=== PATIENT | female | born 1975 | race Caucasian/White ===

== ENCOUNTER 2020-06-30 10:13 | Emergency (ER) | payer OTHER, SELFPAY ==
[~2020-06-30] VITALS: Ht 162.6 cm; Wt 66.2 kg
[2020-06-30 10:22] VITALS: BP 151/96; Ht 162.6 cm; Wt 66.2 kg
== END 2020-06-30 11:14 | disposition home or self-care (01) ==
LOC: ED 10:13
DX: R19.7 Diarrhea, unspecified (principal); R51.9 Headache, unspecified; M79.10 Myalgia, unspecified site; R11.0 Nausea; Z20.828 Contact with and (suspected) exposure to other viral communicable diseases
CPT/HCPCS: U0003